=== PATIENT | female | born 2005 | race Caucasian/White ===

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

== ENCOUNTER → 2024-03-29 08:12 | Outpatient (BNVA) | payer SELFPAY | PROVIDERS: PCP Nurse Practitioner Family; Visit Provider Nurse Practitioner Family | DX: N93.9 Abnormal uterine and vaginal bleeding, unspecified (principal) | CPT/HCPCS: 81025 ==

== ENCOUNTER 2024-04-11 12:50 | Emergency (ER) | payer MEDICAID, SELFPAY ==
[2024-04-11 12:59] VITALS: BP 110/76; PULSE 89; RESP 15; TEMP 36.7; O2SAT 99; BMI 18.2
[2024-04-11 15:04] VITALS: BP 103/54; PULSE 92; RESP 16; O2SAT 100
--- NOTE | 2024-04-11 15:06 | CT_ITS ---
WS: [id number] CT HEAD NONCONTRAST HISTORY: lambert TECHNIQUE: Contiguous axial imaging performed through the brain. Bone and soft tissue windows. Sagitt al and coronal reformats reviewed. All CT scans at [facility] use at least one of these dose optimization techniques: automated exposure control; mA and/or kV adjustment per patient size (includ es targeted exams where dose is matched to clinical indication); or iterative reconstruction. DLP: 908.20 mGy.cm COMPARISON: 07/19/2013 No acute intracranial hemorrhage, midline shift or mass effect. No atrophy or prior infarcts or herniation. Ventricles: Normal size with no hydrocephalus. Paranasal sinuses: As visualized are clear. Mastoid air cells: Well pneumatized. Calvarium and scalp: Skull is intact with no soft tissue edema or swelling. CT/CT head wo con* [id number] IMPRESSION: Negative head CT.
--- NOTE | 2024-04-11 15:10 | W.ED.NEUROSD ---
HPI - Neuro Symptoms/Deficit General: Chief Complaint: Neuro Symptoms/Deficit Stated Complaint: left side numbness Time Seen by Provider: 04/11/24 14:56 Source: patient Mode of arrival: ambulatory Limitations: no limitations History of Present Illness: 18-year-old female has a history of headaches states that she had woke up this morning with a headache it feels like her previous headaches. States she had had some pain along with numbness in her legs and arms. She denied any slurred speech rates headache a 6 out of 10 currently she denies any fevers. Associated symptoms: Reports headache(s); Deny chest pain, nausea or vomiting Related Data Home Medications Medication Instructions Recorded Confirmed [id number] 250 1 tab PO Q6H PRN Headache 09/16/21 04/11/24 mg-250 mg-65 mg tablet (Excedrin Extra Strength) lamotrigine 50 mg tablet,extended See Rx Instructions .Route .COMPLEX 04/11/24 04/11/24 release 24 hr (Lamictal XR) levocetirizine 5 mg tablet 5 mg PO DAILY 04/11/24 04/11/24 metoclopramide HCl 10 mg tablet 10 mg PO DAILY PRN Nausea 04/11/24 04/11/24 ubrogepant 100 mg tablet (Ubrelvy) See Rx Instructions .Route .COMPLEX 04/11/24 04/11/24 Previous Rx's Medication Instructions Recorded norgestimate 0.18 mg/0.215 mg/0.25 See Rx Instructions .Route 08/29/23 mg-ethinyl estradiol 25 mcg tablet .COMPLEX #84 tabs (Tri-Lo-Lilia) ondansetron 4 mg disintegrating See Rx Instructions .Route 01/09/24 tablet .COMPLEX #9 tabs famotidine 20 mg tablet 20 mg PO DAILY #30 tabs 03/29/24 sertraline 25 mg tablet (Zoloft) 25 mg PO DAILY #30 tabs 03/29/24 Allergies Allergy/AdvReac Type Severity Reaction Status Date / Time No Known Allergies Allergy Verified 04/05/24 11:56 Review of Systems Const: Denies: fever(s), chills, body aches or change in appetite Eyes: Denies: blurry vision or eye discomfort ENMT: Denies: throat pain or dental pain Card: Denies: chest pain Resp: Denies: dyspnea GI: Denies: abdominal pain, nausea, vomiting or diarrhea Musc: Denies: neck pain or back pain Skin/Breast: Denies: rash Neuro: Reports: headache(s) Psych: Denies: depression [facility] [place] ED PFSH: Medical History Seizure-like activity Fracture of left upper extremity as toddler Congenital ventricular septal defect Mitral valve regurgitation congenital Followed by pediatric cardiology in [place]. She has transitioned from lisinopril to losartan 2021. Hypertension [facility] Dr. Laurent Surgical History Status post atrial septal defect closure H/O congenital atrial septal defect (ASD) repair Family History Sister Congenital heart disease Cardiac Other Heart disease Migraines Social History Smoking and tobacco/nicotine status: unknown if used tobacco/nicotine Alcohol intake: never Substance/Drug Use: never Current occupation: [employer] Current gender identity: Female Special deacon needs: No Female Reproductive History: Date of last menstrual period: 04/04/24 NIH stroke score NIHSS: Level Of Consciousness - 1a: 0 Level Of Consciousness Questions - 1b: Both Correct Level Of Consciousness Commands - 1c: Both Correct Best Gaze - 2: Normal Visual Corbett - 3: No Visual Loss Facial Palsy - 4: Normal Motor Arm Right - 5: No Drift Motor Arm Left - 5: No Drift Motor Leg Right - 6: No Drift Motor Leg Left - 6: No Drift Limb Ataxia - 7: Absent Sensory - 8: Normal Best Language - 9: No Aphasia Dysarthia - 10: Normal Extinction And Inattention - 11: 0 Score: Total Score: 0 Physical Exam Const: COMMON NORMALS: no acute distress, patient oriented x3 and healthy appearing HENMT: COMMON NORMALS: normocephalic and atraumatic HEAD & SCALP: normocephalic and atraumatic Eye: COMMON NORMALS: Equal, round and reactive pupils present and EOMs intact bilaterally PUPIL: Yes Equal, round and reactive pupils present Neck/C-Spine: COMMON NORMALS: full ROM and supple Chest: COMMONS NORMALS: normal inspection of the chest and normal palpation of entire chest wall Resp: COMMON NORMALS: normal respiratory effort, No retractions, No use of accessory muscles and clear to auscultation bilaterally AUSCULTATION: clear to auscultation bilaterally Cardio: COMMON NORMALS: regular rate, regular rhythm and No murmurs present (Cardio) RATE: regular rate RHYTHM: regular rhythm GI: COMMON NORMALS: Normal to inspection, nondistended, normoactive bowel sounds present, Soft to palpation, non-tender and no masses PALPATION: Yes Soft to palpation Extremity: COMMON NORMALS: normal to inspection and full ROM Neuro: COMMON NORMALS: patient oriented x3, moves all extremities and no focal motor deficits Psych: COMMON NORMALS: mental status grossly normal, Normal thought process present and cooperative THOUGHT PROCESS: Normal thought process present Skin: COMMON NORMALS: no rashes or lesions noted and no wounds GENERAL SKIN EXAM: no rashes or lesions noted Course Vital Signs: Vital signs: Vital Signs Temperature 98.0 F 04/11/24 12:59 Pulse Rate 72 04/11/24 16:18 Respiratory Rate 16 04/11/24 15:04 Blood Pressure 127/72 04/11/24 16:18 Pulse Oximetry 98 04/11/24 16:18 Oxygen Delivery Me thod Room Air 04/11/24 15:30 MDM - Neuro Symptoms/Deficit Medical Decision Making Patient presents here with migraine with aura she feels improved here after headache meds her headache is resolved she is no signs of a stroke she stable for discharge she is to follow-up with her neurologist she understands agrees to plan Lab Data I reviewed the patient's lab results. 04/11/24 15:24 04/11/24 15:[address] 04/11/24 15:06 IMPRESSION: Negative head CT. Laboratory Results WBC 7.55 10^3/uL (4.5-13.0) 04/11/24 15:24 RBC 5.23 10^6/uL (3.85-5.65) 04/11/24 15:24 Hgb 15.50 g/dL (12.4-14.8) H 04/11/24 15:24 Hct 47.6 % (36-47) H 04/11/24 15:24 MCV 91.0 fl (85-98) 04/11/24 15:24 MCH 29.6 pg (27-33) 04/11/24 15:24 MCHC 32.6 g/dL (30-55) 04/11/24 15:24 RDW 12.9 % (12.1-15.1) 04/11/24 15:24 Plt Count 198 10^3/cmm (157-399) 04/11/24 15:24 MPV 12.5 fL (7.4-10.4) H 04/11/24 15:24 Neut % (Auto) 67.5 % 04/11/24 15:24 Lymph % (Auto) 23.0 % 04/11/24 15:24 Wolfe % (Auto) 8.1 % 04/11/24 15:24 Eos % (Auto) 0.4 % 04/11/24 15:24 Baso % (Auto) 0.7 % 04/11/24 15:24 Neut # (Auto) 5.10 10^3/uL (1.8-8.0) 04/11/24 15:24 Lymph # (Auto) 1.7 10^3/uL (1.5-6.5) 04/11/24 15:24 Wolfe # (Auto) 0.6 10^3/uL (0.2-0.9) 04/11/24 15:24 Eos # (Auto) 0.0 10^3/uL (0.0-0.8) 04/11/24 15:24 Baso # (Auto) 0.1 10^3/uL (0.0-0.1) 04/11/24 15:24 Nucleated RBC % (auto) 0 % 04/11/24 15:24 Nucleated RBCs # 0.0 /100WBC 04/11/24 15:24 Sodium Cancelled 04/11/24 15:24 Potassium Cancelled 04/11/24 15:24 Chloride Cancelled 04/11/24 15:24 Carbon Dioxide Cancelled 04/11/24 15:24 Anion Gap Cancelled 04/11/24 15:24 BUN Cancelled 04/11/24 15:24 Creatinine Cancelled 04/11/24 15:24 GFR Calculation Cancelled 04/11/24 15:24 Glucose Cancelled 04/11/24 15:24 Calculated Osmolality Cancelled 04/11/24 15:24 Calcium Cancelled 04/11/24 15:24 Total Bilirubin Cancelled 04/11/24 15:24 AST Cancelled 04/11/24 15:24 ALT Cancelled 04/11/24 15:24 Alkaline Phosphatase Cancelled 04/11/24 15:24 Total Protein Cancelled 04/11/24 15:24 Albumin Cancelled 04/11/24 15:24 Globulin Cancelled 04/11/24 15:24 HCG, Qual Negative (Negative) 04/11/24 15:24 All radiology interpretation(s) finalized by discharge Discharge Plan Discharge Patient Disposition: Home Clinical Impression: Headache Condition: Stable Prescriptions: No Action famotidine 20 mg tablet 20 mg PO DAILY Qty: 30 0RF sertraline [Zoloft] 25 mg tablet 25 mg PO DAILY Qty: 30 0RF Excedrin Extra Strength 250-250-65 mg tablet 1 tab PO Q6H PRN (Reason: Headache) norgestimate-ethinyl estradiol [Tri-Lo-Lilia] 0.18/0.215/0.25 mg-25 mcg tablet See Rx Instructions .ROUTE .COMPLEX Qty: 84 4RF Dose Instruction: TAKE 1 TABLET BY MOUTH ONCE DAILY AT THE SAME TIME EVERY DAY. WAIT 5-7 DAYS AFTER FINISHING PACK TO START NEW PACK. Rx Instructions: TAKE 1 TABLET BY MOUTH ONCE DAILY AT THE SAME TIME EVERY DAY. WAIT 5-7 DAYS AFTER FINISHING PACK TO START NEW PACK. ondansetron 4 mg tablet,disintegrating See Rx Instructions .ROUTE .COMPLEX Qty: 9 0RF Dose Instruction: DISSOLVE 1 TABLET IN MOUTH EVERY 8 HOURS NEEDED FOR NAUSEA AND VOMITING. MAX DAILY DOSE OF 3 TABLETS Rx Instructions: DISSOLVE 1 TABLET IN MOUTH EVERY 8 HOURS NEEDED FOR NAUSEA AND VOMITING. MAX DAILY DOSE OF 3 TABLETS metoclopramide HCl 10 mg tablet 10 mg PO DAILY PRN (Reason: Nausea) levocetirizine 5 mg tablet 5 mg PO DAILY lamotrigine [Lamictal XR] 50 mg tablet extended release 24hr See Rx Instructions .ROUTE .COMPLEX Rx Instructions: Take 1 tablet (50mg) by mouth at bedtime for a week. 2nd week take 2 tablets (100mg) at bedtime. 3rd week take 3 tablets (150mg) thereafter. Ubrelvy 100 mg tablet See Rx Instructions .ROUTE .COMPLEX Rx Instructions: Take 1 tablet by mouth at onset of migraine; take another 2 hours later if migraine persists. no more than 2 a day; 8 a week Discharge Orders: Discharge ED (Routine); Ordered 04/11/24 Ordered By: Lul Jenkins Referrals: Susie Melchor FNP [Primary Care Provider] - Discharge Diet: Advance as tolerated Discharge Activity: Resume usual activity Patient Instructions: Migraine Headache (ED) Stand Alone Forms: Work/School Release Coding Level of Care Code ED Public Health Technician for Gilda Obando
[2024-04-11] MEDS: metoclopramide 5 mg/mL SDV 2 mL 10 MG IVP (15:27)
[2024-04-11] MEDS: diphenhydrAMINE 50 mg/mL SDV 1mL IVP (15:27)
[2024-04-11 15:30] VITALS: BP 121/75; PULSE 99; O2SAT 97
--- NOTE | 2024-04-11 15:37 | PC.NURSE ---
pt requesting water, Dr. Alice johnson.
[2024-04-11 15:41] LABS: Basophils # 0.1 10^3/uL (0.0-0.1); Basophils % 0.7 %; Eosinophils % 0.4 %; Hematocrit 47.6 % (36-47); Lymphocytes # 1.7 10^3/uL (1.5-6.5); Mean Corpuscular HGB Conc 32.6 g/dL (30-55); Mean Corpuscular Hemoglobin 29.6 pg (27-33); Mean Platelet Volume 12.5 fL (7.4-10.4); Monocytes # 0.6 10^3/uL (0.2-0.9); Monocytes % 8.1 %; Neutrophils % 67.5 %; Nucleated Red Blood Cells % 0 %; Platelet Count 198 10^3/cmm (157-399); Red Blood Count 5.23 10^6/uL (3.85-5.65); Red Cell Distribution Width 12.9 % (12.1-15.1); White Blood Count 7.55 10^3/uL (4.5-13.0)
[2024-04-11 15:55] LABS: HCG, Serum Qual Negative (Negative)
[2024-04-11] MEDS: ketorolac 30 mg/mL INJ 15 MG IVP (16:08)
[2024-04-11 16:18] VITALS: BP 127/72; PULSE 72; O2SAT 98
[2024-04-11 16:56] LABS: Alanine Aminotransferase 9 U/L (0-33); Albumin Level 4.7 g/dL (3.5-5.2); Alkaline Phosphatase 67 U/L (35-105); Anion Gap 17.7 (5-19); Aspartate Amino Transferase 16 U/L (0-32); Blood Urea Nitrogen 7 mg/dL (6-20); Calcium 9.9 mg/dL (8.5-10.5); Carbon Dioxide 23 mmol/L (22-29); Chloride 106 mmol/L (98-107); Creatinine Clr Calc Pharmacy 119.3441; Globulin 2.7 g/dL (1.3-4.6); Glomerular Filtration Rate 128.8 mL/min (90-130); Glucose 82 mg/dL (65-115); Osmolality Calculated 293 mOsm/kg (285-295); Potassium 3.7 mmol/L (3.5-5.1); Sodium 143 mmol/L (136-145); Total Bilirubin 0.6 mg/dL (0.15-1.2); Total Protein 7.4 g/dL (6.6-8.7)
== END 2024-04-11 16:19 | disposition home or self-care (01) ==
PROVIDERS: Emergency Provider Emergency Medicine; PCP Nurse Practitioner Family
DX: R51.9 Headache, unspecified (principal); I10 Essential (primary) hypertension
CPT/HCPCS: 36415; 70450; 80053; 84703; 85025; 96374; 96375; 99285; J1200; J1885; J2765

== ENCOUNTER → 2024-04-26 10:56 | Outpatient (BNVA) | payer MEDICAID, SELFPAY | PROVIDERS: Family Provider Nurse Practitioner Family; PCP Nurse Practitioner Family; Visit Provider Nurse Practitioner Family | DX: Z30.9 Encounter for contraceptive management, unspecified (principal) | CPT/HCPCS: 81025 ==

== ENCOUNTER → 2024-07-13 09:12 | Outpatient (BNVA) | payer MEDICAID, SELFPAY | PROVIDERS: Family Provider Nurse Practitioner Family; PCP Nurse Practitioner Family; Visit Provider Nurse Practitioner Family | DX: R39.9 Unspecified symptoms and signs involving the genitourinary system (principal) | CPT/HCPCS: 81000 ==

== ENCOUNTER → 2024-09-12 08:58 | Outpatient (BNVA) | payer MEDICAID, SELFPAY | PROVIDERS: Family Provider Nurse Practitioner Family; PCP Nurse Practitioner Family; Visit Provider Nurse Practitioner Family | DX: R23.2 Flushing (principal) | CPT/HCPCS: 80053; 81000; 84443; 85025; 87086 ==

== ENCOUNTER → 2024-10-04 09:35 | Outpatient (BNVA) | payer MEDICAID, SELFPAY | PROVIDERS: Family Provider Nurse Practitioner Family; PCP Nurse Practitioner Family; Referring Provider Psychiatry & Neurology Neurology; Visit Provider Psychiatry & Neurology Neurology | DX: G40.909 Epilepsy, unspecified, not intractable, without status epilepticus (principal) | CPT/HCPCS: 95819 ==

== ENCOUNTER → 2024-11-01 12:44 | Outpatient (BNVA) | payer MEDICAID, SELFPAY | PROVIDERS: Family Provider Nurse Practitioner Family; PCP Nurse Practitioner Family; Visit Provider Nurse Practitioner Family | DX: R11.0 Nausea (principal) | CPT/HCPCS: 80053; 81000; 81025; 85025 ==

== ENCOUNTER 2024-11-16 07:47 | Outpatient (CLI) | payer MEDICAID, SELFPAY ==
--- NOTE | 2024-11-16 08:00 | US_ITS ---
WS: [id number] Complete ABDOMINAL ULTRASOUND HISTORY: R11.0 - Nausea COMPARISON: None available. Liver: 12.3 cm in length. Normal size liver and echogenicity. No bile duct dilatation or mass. Portal Vein: Normal hepatopetal flow with monophasic waveform. Gallbladder: Normally distended gallbladder with no stones or wall thickening. CBD: 0.3 cm Pancreas: Normal size and echogenicity. Right kidney: 9.2 cm x 5.1 x 4.0 cm. Cortex:1.0 cm. Normal size and echogenicity. No hydronephrosis or mass. Left kidney: 9.9 cm x 4.4 cm x 5.5 cm. Cortex: 1.1 cm. Normal size and echogenicity. No hydronephrosis or mass. Spleen: 9.2 cm. Normal size and echogenicity. Aorta and IVC: Unremarkable abdominal aorta and IVC. US/US abdomen complete* [id number] Impression: Normal complete abdomen ultrasound.
== END 2024-11-16 07:48 | disposition home or self-care (01) ==
PROVIDERS: Family Provider Nurse Practitioner Family; PCP Nurse Practitioner Family; Visit Provider Nurse Practitioner Family
DX: R11.0 Nausea (principal)
CPT/HCPCS: 76700